=== PATIENT | female | born 1990 | race Caucasian/White ===

== ENCOUNTER 2024-11-12 04:44 | Emergency (ER) | payer BC ==
[2024-11-12 05:20] LABS: Absolute Eosinophils 0.3 K/uL (0-0.5); Absolute Lymphocytes (CBC) 2.3 K/uL (0.7-4.9); Absolute Monocytes 0.5 K/uL (0.1-1.3); Absolute Neutrophil 4.8 K/uL (1.8-8.0); Basophils % 0.5 % (0-1.3); Eosinophils % 4.2 % (0-4.4); Hematocrit 37.9 % (36.0-45.0); Hemoglobin 12.6 g/dL (12.0-15.0); Lymphocytes % 28.3 % (15.3-44.8); MCH 27.7 pg (27.0-35.0); MCHC 33.2 g/dL (32.0-36.0); MCV 83.6 fL (80-100); MPV 7.8 fL (7.6-11.3); Monocytes % 6.1 % (3.3-12.3); Neutrophils % 60.9 % (41.7-73.7); Platelets 309 thou/uL (152-406); RBC Red Blood Cell Count 4.53 M/uL (3.86-4.86); Red Cell Distribution Width 14.2 % (12.1-15.2)
[2024-11-12 06:00] LABS: Albumin 3.1 g/dL (3.4-5.0); Albumin/Globulin Ratio 0.7 (1.1-1.8); Alkaline Phosphatase 87 U/L (45-117); Anion Gap 11.6 mEq/L (5.0-15.0); BUN Blood Urea Nitrogen 18 mg/dL (7-18); Bicarbonate 23 mEq/L (21-32); Bilirubin Total 0.3 mg/dL (0.2-1.0); Globulin 4.6 g/dL (2.3-3.5); Glomerular Filtration Rate 109 ml/min (=/>90); Glucose Level 125 mg/dL (74-106); NT PRO-BNP 18 pg/mL (<125); Protein, Total 7.7 g/dL (6.4-8.2); Sodium Level 136 mEq/L (136-145)
[2024-11-12 06:01] LABS: ALT/SGPT < 14 U/L (13-56); AST/SGOT 17 U/L (15-37); Bilirubin Direct < 0.2 mg/dL (0-0.2); Bilirubin Indirect, Calculated 0.1 mg/dL (0.2-0.8); Potassium 4.6 mEq/L (3.5-5.1); Troponin High Sensitivity < 3.0 pg/mL (<58.9)
--- NOTE | 2024-11-12 06:50 | ER ---
Nurse's Notes [facility] Name: Katty Redman Age: 34 yrs Sex: Female : 1990 Arrival Date: 11/12/2024 Time: 04:44 Bed 4 Private MD: Diagnosis: Chest pain, unspecified Presentation: 11/12 05:02 Chief complaint: Patient states: PT C/O CP RIGHT CHEST WALL AND RADIATES TO LEFT CHEST br2 WALL WOKE HER UP AT 0230AM, NUMBNESS TO LEFT ARM. Coronavirus screen: Client denies travel out of the [place] in the last 14 days. Ebola Screen: Patient denies exposure to infectious person. Ebola Screen: Patient denies exposure to infectious person. Initial Sepsis Screen: Does the patient meet any 2 criteria? No. Patient's initial sepsis screen is negative. Does the patient have a suspected source of infection? No. Patient's initial sepsis screen is negative. Risk Assessment: Do you want to hurt yourself or someone else? Patient reports no desire to harm self or others. Onset of symptoms was November 12, 2024 at 02:30. 05:02 Method Of Arrival: Ambulatory br2 05:02 Acuity: HOOD 3 br2 Triage Assessment: 05:05 General: Appears in no apparent distress. comfortable, Behavior is calm, cooperative. br2 Pain: Complains of pain in anterior aspect of right upper chest and right breast Pain radiates to anterior aspect of left upper chest and left breast Pain currently is 6 out of 10 on a pain scale. EENT: No signs and/or symptoms were reported regarding the EENT system. Neuro: Level of Consciousness is awake, alert, obeys commands, Oriented to person, place, time, situation. Cardiovascular: Reports chest pain, Capillary refill < 3 seconds. Respiratory: Airway is patent Respiratory effort is even, unlabored, Respiratory pattern is regular, symmetrical. GI: No signs and/or symptoms were reported involving the gastrointestinal system. : No signs and/or symptoms were reported regarding the genitourinary system. Derm: No signs and/or symptoms reported regarding the dermatologic system. Musculoskeletal: Range of motion: intact in all extremities. 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 - Infectious Disease History:: Denies. - Family history:: not pertinent. - Social history:: Smoking status: Patient denies any tobacco usage or history of. Patient/guardian denies using alcohol, street drugs. - Hospitalizations: : No recent hospitalization is reported. Screenin:12 [facility] ED Fall Risk Assessment (Adult) History of falling in the last 3 months, kd3 including since admission No falls in past 3 months (0 pts) Confusion or Disorientation No (0 pts) Intoxicated or Sedated No (0 pts) Impaired Gait No (0 pts) Mobility Assist Device Used No (0 pt) Altered Elimination No (0 pt) Score/Fall Risk Level 0 - 2 = Low Risk Oriented to surroundings. Abuse screen: Denies threats or abuse. Denies injuries from another. Nutritional screening: No deficits noted. Tuberculosis screening: No symptoms or risk factors identified. Assessment: 05:14 General: Appears in no apparent distress. Behavior is calm, cooperative. Neuro: Level kd3 of Consciousness is awake, alert, obeys commands, Oriented to person, place, time, situation. 06:17 General: Appears in no apparent distress. Neuro: Level of Consciousness is awake, kd3 alert, obeys commands, Oriented to person, place, time, situation. Cardiovascular: Capillary refill < 3 seconds Patient's skin is warm and dry. Respiratory: Airway is patent Trachea midline Respiratory effort is even, unlabored, Respiratory pattern is regular, symmetrical. Vital Signs: 05:02 BP 139 / 116; Pulse 84; Resp 18; Temp 97.2(TE); Pulse Ox 98% on R/A; Weight 124.74 kg; br2 Height 5 ft. 3 in. ; Pain 6/10; 06:18 BP 123 / 67; Pulse 75; Resp 15; Pulse Ox 97% on R/A; kd3 05:02 Body Mass Index 48.71 (124.74 kg, 160.02 cm) br2 05:02 Pain Scale: Adult br2 ED Course: 05:00 Patient arrived in ED. rn 05:00 Lance Wyatt MD is Attending Physician. rn 05:05 Triage completed. br2 05:08 EKG done, by renal technician. af3 05:11 El, Erica, RN is Primary Nurse. kd3 05:11 CBC with Diff Sent. kd3 05:11 LFT's Sent. kd3 05:11 NT PRO-BNP Sent. kd3 05:11 Troponin HS Sent. kd3 05:13 Arm band placed on right wrist. kd3 05:13 Patient has correct armband on for positive identification. kd3 06:02 XRAY Chest (1 view) In Process Unspecified. EDMS 07:03 No provider procedures requiring assistance completed. IV discontinued, intact, kd3 bleeding controlled, No redness/swelling at site. Pressure dressing applied. 07:03 Provided Education on: chest pains . kd3 Administered Medications: No medications were administered Medication: 05:13 VIS not applicable for this client. kd3 Outcome: 06:50 Discharge ordered by . rn 07:03 Discharged to home ambulatory, kd3 07:03 Condition: stable 07:03 Discharge instructions given to patient, family, Instructed on discharge instructions, follow up and referral plans. Demonstrated understanding of instructions, follow-up care, 07:03 Patient left the ED. kd3 Signatures: Dispatcher [employer] EDMS Lance Wyatt MD MD rn Doucette, Kyli, RN RN kd3 Evelyn Marcano RN RN jose2 Sherri Avila af3
--- NOTE | 2024-11-12 06:50 | EDPHYS ---
Physician Documentation [facility] Name: Katty Redman Age: 34 yrs Sex: Female : 1990 Arrival Date: 11/12/2024 Time: 04:44 Bed 4 Private MD: ED Physician Lance Wyatt HPI: 11/12 05:02 This 34 yrs old Female presents to ER via Unassigned with complaints of chest pain. rn 05:02 The patient or guardian reports chest pain that is located primarily in the anterior rn chest wall. The pain radiates to the left arm. Associated signs and symptoms: Pertinent negatives: abdominal pain, cough, diaphoresis, shortness of breath, syncope, vomiting. The chest pain is described as a heaviness, sharp. Duration: The patient or guardian reports a single episode, that is still ongoing. Modifying factors: The symptoms are alleviated by nothing. the symptoms are aggravated by nothing. Severity of pain: At its worst the pain was moderate in the emergency department the pain is unchanged. The patient has not experienced similar symptoms in the past. Patient reports central chest pain that radiates to the left arm. Started 3 hours ago. No known cardiac or lung problems. No fever or chills. No recent illness. No trauma. No hemoptysis. No history of DVT or PE. No drug use. Denies abdominal pain. 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 - Infectious Disease History:: Denies. - Family history:: not pertinent. - Social history:: Smoking status: Patient denies any tobacco usage or history of. Patient/guardian denies using alcohol, street drugs. - Hospitalizations: : No recent hospitalization is reported. ROS: 05:02 Constitutional: Negative for fever, chills, and weight loss, Neck: Negative for injury, rn pain, and swelling, Cardiovascular: Negative for palpitations, and edema, Respiratory: Negative for shortness of breath, cough, wheezing, and pleuritic chest pain, Abdomen/GI: Negative for abdominal pain, nausea, vomiting, diarrhea, and constipation, Back: Negative for injury and pain, MS/Extremity: Negative for injury and deformity, Skin: Negative for injury, rash, and discoloration, Neuro: Negative for headache, weakness, and seizure, Exam: 05:02 Constitutional: Overweight female, no acute distress. Seems comfortable, using phone rn Head/Face: Normocephalic, atraumatic. Cardiovascular: Regular rate and rhythm. No pulse deficits. Respiratory: No increased work of breathing, no retractions or nasal flaring. Abdomen/GI: Soft, non-tender MS/ Extremity: Pulses equal, no cyanosis. Neurovascular intact. Full, normal range of motion. Equal circumference. Neuro: Awake and alert, GCS 15 05:12 ECG was reviewed by the Attending Physician. rn Vital Signs: 05:02 BP 139 / 116; Pulse 84; Resp 18; Temp 97.2(TE); Pulse Ox 98% on R/A; Weight 124.74 kg; br2 Height 5 ft. 3 in. ; Pain 6/10; 06:18 BP 123 / 67; Pulse 75; Resp 15; Pulse Ox 97% on R/A; kd3 05:02 Body Mass Index 48.71 (124.74 kg, 160.02 cm) br2 05:02 Pain Scale: Adult br2 MDM: 05:00 Medical Screening Exam initiated rn 06:48 Differential diagnosis: acute myocardial infarction, acute pericarditis, anxiety, rn coronary artery disease costochondritis, esophagitis, gastritis, gastroesophageal reflux disease (GERD), pleurisy, pneumonia, pneumothorax. HEART Score: History: Slightly Suspicious (0), ECG: Normal (0), Age: < or = 45 years (0), Risk Factors: 1 or 2 risk factors (1), Troponin: < or = 1 x Normal Limit (0), Total Score = 1. Data reviewed: vital signs, nurses notes, lab test result(s), EKG, radiologic studies, plain films, and as a result, I will discharge patient. Independent interpretation of the following test(s) in the Emergency Department EKG: See my EKG interpretation above X-Ray: My interpretation is Chest x-ray images negative for pneumonia or pneumothorax per my interpretation. Counseling: I had a detailed discussion with the patient and/or guardian regarding the historical points, exam findings, and any diagnostic results supporting the discharge/admit diagnosis, lab results, radiology results, the need for outpatient follow up, to return to the emergency department if symptoms worsen or persist or if there are any questions or concerns that arise at home. Special discussion: Based on the patient's history, exam, and Dx evaluation, there is no indication for emergent intervention or inpatient Tx. It is understood by the patient/guardian that if the Sx's persist or worsen they need to return immediately for re-evaluation. I discussed with the patient/guardian in detail that at this point there is no indication for admission to the hospital. It is understood, however, that if the symptoms persist or worsen the patient needs to return immediately for re-evaluation. Based on the history and exam findings, there is no indication for further emergent testing or inpatient evaluation. I discussed with the patient/guardian the need to see the sponsorship manager for further evaluation of the symptoms. ED course: No acute findings and workup. Recommend cardiology follow-up for further testing and possibly echo. Return precautions given and understood. I have personally reviewed all of the results, including but not limited to blood tests and imaging deemed necessary to safely discharge this patient at this time. All results given to and printed out for patient. I personally went over all the results with the patient and answered all questions. Patient will follow-up with PCP and or specialist as discussed. Return precautions given and understood.. 11/12 05:00 Order name: Basic Metabolic Panel; Complete Time: : rn 11/12 05:00 Order name: CBC with Diff; Complete Time: : rn 11/12 05:00 Order name: LFT's; Complete Time: : rn 11/12 05:00 Order name: NT PRO-BNP; Complete Time: : rn 11/12 05:00 Order name: Troponin HS; Complete Time: : rn 11/12 05:00 Order name: XRAY Chest (1 view); Complete Time: 06: rn 11/12 05:00 Order name: Cardiac monitoring; Complete Time: rn 11/12 05:00 Order name: EKG - Nurse/Tech; Complete Time: rn 11/12 05:00 Order name: IV Saline Lock; Complete Time: rn 11/12 05:00 Order name: Labs collected and sent; Complete Time: rn 11/12 05:00 Order name: O2 Per Protocol; Complete Time: rn 11/12 05:00 Order name: O2 Sat Monitoring; Complete Time: 05:08 rn EC:12 Rate is 89 beats/min. Rhythm is regular. QRS [place] is Normal. MO interval is normal. QRS rn interval is normal. QT interval is normal. No Q waves. T waves are Normal. No ST changes noted. Clinical impression: NSR w/ Non-specific ST/T Changes. Interpreted by me. Reviewed by me. Administered Medications: No medications were administered Disposition Summary: 11/12/24 06:50 Discharge Ordered Notes: Location: Home rn Problem: new rn Symptoms: have improved rn Condition: Stable rn Diagnosis - Chest pain, unspecified rn Followup: rn - With: Private Physician - When: As needed - Reason: Recheck today's complaints, Re-evaluation by your physician Discharge Instructions: - Discharge Summary Sheet rn - Nonspecific Chest Pain, Adult rn Forms: - Medication Reconciliation Form rn - Antibiotic compliance intern - Prescription Opioid Use rn - Patient Portal Instructions rn - Leadership Thank You Letter rn Signatures: Dispatcher [employer] [facility] Lance Wyatt MD MD rn Riddle, Belinda, RN RN br2 Corrections: (The following items were deleted from the chart) 05:01 05:01 BASIC METABOLIC PANEL+C.LAB.BRZ ordered. EDMI EDMS 05:01 05:01 CBC+H.LAB.BRZ ordered. EDMI EDMS 05:01 05:01 HEPATIC FUNCTION+C.LAB.BRZ ordered. EDMI EDMS 05:01 05:01 PROBNP+C.LAB.BRZ ordered. EDMI EDMS 05:01 05:01 Troponin High Sensitivity+C.LAB.BRZ ordered. EDMI EDMS 05:01 05:01 Chest Single View+RAD.RAD.BRZ ordered. EDMI EDMS 05:34 05:02 Constitutional: Overweight female, no acute distress Head/Face: Normocephalic, rn atraumatic. Cardiovascular: Regular rate and rhythm. No pulse deficits. Respiratory: No increased work of breathing, no retractions or nasal flaring. Abdomen/GI: Soft, non-tender MS/ Extremity: Pulses equal, no cyanosis. Neurovascular intact. Full, normal range of motion. Equal circumference. Neuro: Awake and alert, GCS 15 rn
--- NOTE | 2024-11-12 06:53 | RAD REPORT ---
EXAM: Chest Single View HISTORY: 34 years Female CHEST PAIN COMPARISON: None. FINDINGS: LUNGS/PLEURA: The lungs are clear. No pleural effusions or pneumothorax. No pulmonary edema. CARDIAC/MEDIASTINUM: The cardiac silhouette is within normal limits. UPPER ABDOMEN: No significant abnormality. BONES: No acute abnormality. LINES/TUBES/OTHER: N/A IMPRESSION: No evidence of acute cardiopulmonary disease.
[2024-11-12 07:12] VITALS: TEMP 97.2
[2024-11-12 07:13] VITALS: BP 123/67; O2SAT 97
--- NOTE | 2024-11-15 11:12 | EKG ---
Test Date: 2024-11-12 Test Time: 04:59:22 Poll Watcher: AF MEASUREMENT RESULTS: Intervals: Rate: 89 PA: 152 QRSD: 80 QT: 340 QTc: 413 [place]: P: 58 PA: 152 QRS: 53 T: 57 INTERPRETIVE STATEMENTS: Normal sinus rhythm Cannot rule out Anterior infarct, age undetermined Abnormal ECG No previous ECG available for comparison Electronically Signed On 11-15-24 11:03:11 CDT by Jackson Echavarria
== END 2024-11-12 07:03 | disposition home or self-care (01) ==
LOC: ER 04:44
DX: R07.89 Other chest pain (principal)
CPT/HCPCS: 36415; 71045; 80048; 80076; 83880; 84484; 85025; 93005; 99283